=== PATIENT | female | born 1990 | race Hispanic/Latino ===

== ENCOUNTER 2018-04-18 22:01 | Observation (INO) | payer SELFPAY ==
[2018-04-18 22:49] LABS: #Basophils 0.1 thou/uL (0.0-0.2); #Eosinphils 0.1 thou/uL (0.0-0.7); #Lymphocytes 2.2 thou/uL (1.20-3.40); #Monocytes 0.5 thou/uL (0.11-0.59); #Neutrophils 4.6 thou/uL (1.40-6.50); %Basophils 0.9 % (0.0-1.0); %Eosinophils 1.9 % (0.0-10.0); %Lymphocytes 29.5 % (21.0-51.0); %Monocytes 6.7 % (0.0-10.0); Hemoglobin 12.9 g/dL (12.0-16.0); Mean Corpuscular HGB CONC 33.6 g/dL (32.0-36.0); Mean Corpuscular Hemoglobin 29.1 pg (27.0-31.0); Mean Corpuscular Volume 86.6 fL (78.0-98.0); Mean Platelet Volume 7.2 fL (7.4-10.4); Platelet Count 275 thou/uL (130-400); RBC Distribution Width 11.6 % (11.5-14.5); Red Blood Cell (RBC) Count 4.43 mill/uL (4.20-5.40); White Blood Cell (WBC) Count 7.5 thou/uL (4.8-10.8)
[2018-04-18 23:05] LABS: BHCG - Serum Negative (NEGATIVE); Pregs Control Background? CLEAR/WHITE (CLR/WHITE); Pregs Control Bar Appear? YES (CONTROL BAR)
[2018-04-18] MEDS ORDERED: Ondansetron PF 4 MG/2 ML Vial ONE (23:05)
[2018-04-18 23:07] LABS: ALT (SGPT) 23 U/L (8-55); AST (SGOT) 18 U/L (5-34); Albumin 3.9 g/dL (3.5-5.0); Alkaline Phosphatase 75 U/L (40-150); Anion Gap 10 mmol/L (10-20); BUN (Urea Nitrogen) 16 mg/dL (7.0-18.7); Bilirubin, Total 0.2 mg/dL (0.2-1.2); Calc. Creatinine Clearance 0 mL/min (70-130); Calcium 9.6 mg/dL (7.8-10.44); Carbon Dioxide 25 mmol/L (22-29); Chloride 107 mmol/L (98-107); Estimated GFR-MDRD Greater than 90; Globulin 3.4 g/dL (2.4-3.5); Glucose 96 mg/dL (70-105); Potassium 3.7 mmol/L (3.5-5.1); Protein, Total 7.3 g/dL (6.0-8.3); Sodium 138 mmol/L (136-145)
[2018-04-18 23:16] LABS: Prothrombin Time 13.2 SEC (12.0-14.7)
[2018-04-18 23:17] LABS: PTT 36.1 SEC (22.9-36.1)
[2018-04-18] MEDS ORDERED: Morphine 4 MG/ML VIAL ONE (23:22)
--- NOTE | 2018-04-18 23:24 | ULT ---
RIGHT UPPER QUADRANT ULTRASOUND: HISTORY: Right upper quadrant pain. COMPARISON: None. TECHNIQUE: Utilizing a Multi-Hertz transducer, sonographic imaging of the right upper quadrant was performed in the longitudinal and transverse plane. FINDINGS: The head and proximal body of the pancreas have a normal echotexture. The hepatic parenchyma has a normal echotexture. No hepatic masses or intrahepatic biliary dilatatio n. The contour of the hepatic margin is maintained. The right hepatic lobe measures 19.5 cm. The main portal vein is patent. Appropriate directional flow. The right kidney has a normal cortical echotexture. No hydronephrosis. The right kidney measures 11 .9 cm in maximum dimension. There are echogenicity foci with shadowing of the lumen of the gallbladder, compatible with gallstone s. There is a nonmobile stone in the neck of the gallbladder. There is gallbladder wall thickening, measuring 0.6 cm. A small amount of pericholecystic fluid. Positive Gilliland sign. The gallbladder is mildly distended, measuring 12.4 cm in maximum dimension. Common bile duct diameter is 0.7 cm. IMPRESSION: 1. Sonographic evidence of cholecystitis and cholelithiasis. 2. Prominent common bile duct. The possibility of choledocholithiasis should also be considered. POS: VEE
[2018-04-19] MEDS ORDERED: cefOXitin 2 GM in Sodium Chloride 0.9% 100 ML IVPB SCH ×3 (00:15→08:00)
[2018-04-19 01:37] VITALS: BMI 40.0
[2018-04-19] MEDS ORDERED: Ketorolac Tromethamine 30 MG/ML VIAL IVP PRN (01:39)
[2018-04-19] MEDS ORDERED: Acetaminophen 1,000 MG in Premix Bag 1 BAG IVPB PRN (01:40)
[2018-04-19] MEDS ORDERED: Ondansetron ODT 4 MG TAB SL PRN (01:41)
[2018-04-19] MEDS ORDERED: Ondansetron PF 4 MG/2 ML Vial IVP PRN ×2 (01:41→14:48)
[2018-04-19] MEDS: Sodium Chloride 0.9% 1,000 ML IV SCH ×2 (02:10→08:30)
--- NOTE | 2018-04-19 11:15 | HP ---
CHIEF COMPLAINT: Upper abdominal pain. HISTORY OF PRESENT ILLNESS: This is a 27-year-old female with a history of pain in the right upper q uadrant that is described as sharp, severe, radiating around to her right back, associated with nause a, no vomiting. She had similar pain a week ago that resolved on its own. She actually feels better this morning. She denies known history of gallstones, jaundice, pancreatitis. She denies previous abdominal surgery, found to have gallstones, borderline wall thickening and pericholecystic fluid on her ultrasound. Her liver function tests are normal. PAST MEDICAL HISTORY: She denies. PAST SURGICAL HISTORY: She denies. MEDICINES: None. ALLERGIES: No known drug allergies. SOCIAL HISTORY: No smoking, alcohol or drugs. REVIEW OF SYSTEMS: Ten system review of systems is otherwise negative unless described above. PHYSICAL EXAMINATION: VITAL SIGNS: Blood pressure 97/63, pulse 64, respirations 16, temperature 98.3. HEENT: Sclerae are anicteric. Oropharynx clear. NECK: No lymphadenopathy. CHEST: Clear. HEART: Regular rhythm. ABDOMEN: Soft, tender in the right upper quadrant. No guarding or rebound. No abdominal hernias. EXTREMITIES: No ischemia or edema to extremities. LABORATORY DATA: White cell count is 7, hemoglobin 12, platelet count is 275. Sodium 138, potassium 3.7, creatinine 0.73. Liver function tests normal. Lipase normal. ASSESSMENT: Acute cholecystitis. PLAN: Laparoscopic cholecystectomy. Risks, benefits, alternatives discussed. She gives consent. Tyrell aparicio will do this today.
[2018-04-19] MEDS ORDERED: Fentanyl 100 MCG/2 ML VIAL ONE ×3 (11:18→14:43)
[2018-04-19] MEDS ORDERED: Midazolam HCl 2 mg/2 ml Vial ONE ×2 (11:18→13:19)
[2018-04-19] MEDS ORDERED: Ondansetron PF 4 MG/2 ML Vial ONE (12:51)
[2018-04-19] MEDS ORDERED: cefOXitin 2 GM VIAL ONE (13:05)
[2018-04-19] MEDS ORDERED: Sodium Chloride 0.9% 100 ML ONE (13:06)
[2018-04-19] MEDS ORDERED: Bupivacaine/Epinephrine 0.25% 30 ML VIAL ONE (13:09)
[2018-04-19] MEDS ORDERED: SUGAMMADEX SODIUM 200 MG/2 ML VIAL ONE (14:20)
[2018-04-19] MEDS ORDERED: hydrALAZINE 20 MG/ML VIAL SLOW IVP PRN (14:48)
[2018-04-19] MEDS ORDERED: Mag-Al 1200 mg/1200 mg/30 ML UDCUP PO PRN (14:48)
[2018-04-19] MEDS ORDERED: Promethazine HCl 25 MG/ML VIAL IM PRN (14:48)
[2018-04-19] MEDS ORDERED: Morphine 2 MG/ML SYRINGE SLOW IVP PRN (14:48)
[2018-04-19] MEDS ORDERED: Sodium Chloride 0.9% 1,000 ML IV SCH (14:48)
[2018-04-19] MEDS ORDERED: HYDROcodone/Acetaminophen 10/325 mg Tablet PO PRN ×2 (14:48)
[2018-04-19] MEDS ORDERED: Dextrose 50% Abboject 50 ML SYRINGE SLOW IVP PRN (14:48)
[2018-04-19] MEDS ORDERED: Dextrose 5% in Water 1,000 ML IV PRN (14:48)
[2018-04-19] MEDS ORDERED: Calcium Carbonate 500 MG ChewTAB PO PRN (14:48)
--- NOTE | 2018-04-19 15:05 | OP ---
DATE OF PROCEDURE: 04/19/2018 PREOPERATIVE DIAGNOSIS: Acute cholecystitis. POSTOPERATIVE DIAGNOSIS: Acute cholecystitis. PROCEDURE: Laparoscopic cholecystectomy. SURGEON: Zaid Cuenca M.D. ANESTHESIA: General. ESTIMATED BLOOD LOSS: Minimal. COMPLICATIONS: None. SPECIMEN: Gallbladder. FINDINGS: Acute cholecystitis. PROCEDURE IN DETAIL: The patient was taken to the Operating Room and laid supine on the Operating Ro om table. After general anesthetic was obtained, the abdomen was prepped and draped in a sterile fas hion. A curved incision was made below the umbilicus. Cautery was used to dissect down to the umbil ical fascia. Umbilical fascia was incised and held up using a Manuel. The abdominal cavity was ente red using a Lucy clamp. Holding stitch of Vicryl was placed on each side of the fascia. Snyder tro car was placed. High-flow pneumoperitoneum was obtained. An upper midline 5-mm port and two right u pper quadrant 5-mm ports were placed under direct camera visualization. The gallbladder was retracte d from the gallbladder fossa. The peritoneum of the gallbladder was opened anteriorly and posteriorl y. The critical view triangle was seen showing only the cystic duct and cystic artery branching from medial to lateral. There were no other branching structures. Two clips were placed proximally on t he cystic duct and one laterally. It was cut using laparoscopic scissors. The cystic artery was georgiana en in the same way. Electrocautery was then used to dissect the gallbladder out of the gallbladder f yves. The gallbladder was placed in an Endo catch bag and brought out through the Snyder. There was no bleeding or bile in the liver bed. The cystic duct stump and cystic artery stump were intact wit hout evidence of extravasation or bleeding. All port sites were infiltrated using local anesthesia. All ports were removed under camera visualization. Pneumoperitoneum was let down. The Vicryl was u sed to close the fascial defect below the umbilicus. All incisions were irrigated and closed using 4 -0 Monocryl and DermaBond. The patient was en route to Recovery in stable condition. All instrument counts, needle counts and lap counts were correct.
[2018-04-19 16:55] VITALS: BP 143/92; TEMP 98.6
[2018-04-19] MEDS ORDERED: Lidocaine 1% PF 5 ML VIAL ONE (17:31)
[2018-04-19] MEDS ORDERED: Dexamethasone 20 MG/5 ML VIAL ONE (17:31)
[2018-04-19] MEDS ORDERED: Glycopyrrolate 0.2 MG/ML 5 ML SYRINGE ONE (17:31)
[2018-04-19] MEDS ORDERED: PROPOFOL 200 MG/20 ML VIAL ONE (17:31)
[2018-04-19] MEDS ORDERED: Famotidine 20 MG TAB PO SCH (21:00)
[2018-04-19] MEDS ORDERED: Famotidine/PF 20 mg/2ml Vial SLOW IVP SCH (21:00)
== END 2018-04-19 20:35 | disposition home or self-care (01) ==
LOC: ERS 22:01 → SURG B 23:20
PROVIDERS: ADMIT Surgery; ATTEND Surgery
PROC: 0FT44ZZ Resection of Gallbladder, Percutaneous Endoscopic Approach (ICD-10-PCS; principal; 2018-04-19)
DX: K81.2 Acute cholecystitis with chronic cholecystitis (principal)
CPT/HCPCS: 36415; 76705; 80053; 84703; 85025; 85610; 85730; 86850; 86900; 86901; 88304; 93005; 96361; 96365; 96366; 96367; 96375; 96376; G0378; J0131; J0694; J1100; J1885; J2001; J2250; J2270; J2405; J2704; J3010; J7050

== ENCOUNTER 2020-08-06 18:41 | Emergency (ER) | payer SELFPAY ==
[2020-08-06 20:25] LABS: #Basophils 0.1 thou/uL (0.0-0.2); #Eosinphils 0.1 thou/uL (0.0-0.7); #Lymphocytes 2.4 thou/uL (1.20-3.40); #Monocytes 0.7 thou/uL (0.11-0.59); #Neutrophils 5.2 thou/uL (1.40-6.50); %Eosinophils 1.2 % (0.0-10.0); %Lymphocytes 28.1 % (21.0-51.0); %Monocytes 8.3 % (0.0-10.0); %Neutrophils 61.3 % (42.0-75.0); Mean Corpuscular HGB CONC 34.8 g/dL (32.0-36.0); Mean Corpuscular Hemoglobin 30.7 pg (27.0-31.0); Mean Corpuscular Volume 88.2 fL (78.0-98.0); Mean Platelet Volume 7.8 fL (7.4-10.4); Platelet Count 257 thou/uL (130-400); RBC Distribution Width 11.5 % (11.5-14.5); Red Blood Cell (RBC) Count 4.88 mill/uL (4.20-5.40); White Blood Cell (WBC) Count 8.5 thou/uL (4.8-10.8)
[2020-08-06 20:50] LABS: ALT (SGPT) 15 U/L (8-55); AST (SGOT) 14 U/L (5-34); Alkaline Phosphatase 64 U/L (40-110); Anion Gap 11 mmol/L (10-20); BUN (Urea Nitrogen) 11 mg/dL (7.0-18.7); Bilirubin, Total 0.4 mg/dL (0.2-1.2); Calc. Creatinine Clearance 0 mL/min (70-130); Calcium 9.1 mg/dL (7.8-10.44); Carbon Dioxide 27 mmol/L (22-29); Chloride 107 mmol/L (98-107); Globulin 3.7 g/dL (2.4-3.5); Glucose 73 mg/dL (70-105); Lipase 34 U/L (8-78); Potassium 3.8 mmol/L (3.5-5.1); Protein, Total 7.7 g/dL (6.0-8.3); Sodium 141 mmol/L (136-145)
[2020-08-07] MEDS ORDERED: Mag-Al 1200 mg/1200 mg/30 ML UDCUP ONE (00:52)
[2020-08-07] MEDS ORDERED: Lidocaine Viscous Sol 2% 15 ml UD Cup ONE (00:52)
[2020-08-07 01:47] LABS: Pregnancy Test - Urine (BHCG) Negative (Negative); Pregu Control Background? CLEAR/WHITE (CLR/WHITE); Pregu Control Bar Appear? YES (CONTROL BAR); Specific Gravity 1.025 (1.002-1.036)
[2020-08-07 01:49] LABS: Bacteria/HPF None Seen HPF (None Seen); Bilirubin Negative (Negative); Blood, Urine Negative (Negative); Clarity Clear (Clear); Glucose, Urine (Dipstick) Normal (Negative); Ketone, Urine Negative (Negative); Leukocyte 250 Leu/uL (Negative); Nitrite Negative (Negative); Protein, Urine (Dipstick) Negative (Neg-Trace); RBC/HPF 0-3 HPF (0-3); Specific Gravity, Urine 1.025 (1.002-1.036); Urobilinogen Normal mg/dL (Less than 2); pH, Urine 5.5 (5.0-9.0)
== END 2020-08-07 03:45 | disposition home or self-care (01) ==
LOC: ERS 18:41
DX: R10.13 Epigastric pain (principal); F17.210 Nicotine dependence, cigarettes, uncomplicated
CPT/HCPCS: 36415; 80053; 81003; 81015; 81025; 83690; 85025; 99283

== ENCOUNTER 2020-12-17 21:22 | Emergency (ER) | payer MEDICAID, SELFPAY ==
[2020-12-17 21:56] LABS: #Eosinphils 0.1 thou/uL (0.0-0.7); #Lymphocytes 2.7 thou/uL (1.20-3.40); #Monocytes 0.8 thou/uL (0.11-0.59); %Basophils 0.4 % (0.0-1.0); %Eosinophils 0.6 % (0.0-10.0); %Lymphocytes 25.4 % (21.0-51.0); %Monocytes 7.6 % (0.0-10.0); Hemoglobin 13.9 g/dL (12.0-16.0); Mean Corpuscular HGB CONC 33.2 g/dL (32.0-36.0); Mean Corpuscular Hemoglobin 29.7 pg (27.0-31.0); Mean Corpuscular Volume 89.4 fL (78.0-98.0); Mean Platelet Volume 7.5 fL (7.4-10.4); Platelet Count 287 thou/uL (130-400); RBC Distribution Width 11.8 % (11.5-14.5); Red Blood Cell (RBC) Count 4.67 mill/uL (4.20-5.40); White Blood Cell (WBC) Count 10.6 thou/uL (4.8-10.8)
[2020-12-17 22:17] LABS: ALT (SGPT) 14 U/L (8-55); AST (SGOT) 17 U/L (5-34); Alkaline Phosphatase 67 U/L (40-110); Anion Gap 13 mmol/L (10-20); BUN (Urea Nitrogen) 13 mg/dL (7.0-18.7); Bilirubin, Total 0.2 mg/dL (0.2-1.2); Calc. Creatinine Clearance 0 mL/min (70-130); Calcium 9.6 mg/dL (7.8-10.44); Carbon Dioxide 24 mmol/L (22-29); Chloride 107 mmol/L (98-107); Globulin 3.4 g/dL (2.4-3.5); Glucose 90 mg/dL (70-105); Potassium 4.8 mmol/L (3.5-5.1); Protein, Total 7.4 g/dL (6.0-8.3); Sodium 139 mmol/L (136-145)
[2020-12-17 23:00] LABS: Bilirubin Negative (Negative); Blood, Urine Negative (Negative); Clarity Clear (Clear); Glucose, Urine (Dipstick) Normal (Negative); Ketone, Urine Negative (Negative); Leukocyte Negative Leu/uL (Negative); Nitrite Negative (Negative); Protein, Urine (Dipstick) Negative (Neg-Trace); Specific Gravity, Urine 1.026 (1.002-1.036); Urobilinogen Normal mg/dL (Less than 2); pH, Urine 6.5 (5.0-9.0)
[2020-12-17 23:04] LABS: Pregnancy Test - Urine (BHCG) Negative (Negative); Pregu Control Background? CLEAR/WHITE (CLR/WHITE); Pregu Control Bar Appear? YES (CONTROL BAR); Specific Gravity 1.026 (1.002-1.036)
[2020-12-19 21:53] LABS: Chlamydia by PCR DETECTED (NotDetected); GC by PCR DETECTED (NotDetected)
== END 2020-12-18 00:02 | disposition home or self-care (01) ==
LOC: ERS 21:22
DX: R10.30 Lower abdominal pain, unspecified (principal); K21.9 Gastro-esophageal reflux disease without esophagitis; Z87.891 Personal history of nicotine dependence
CPT/HCPCS: 36415; 80053; 81003; 81025; 85025; 87480; 87491; 87510; 87591; 87660; 99284